=== PATIENT | male | born 1955 | race African-American/Black ===

== ENCOUNTER 2024-09-27 03:18 | Emergency (ER) | payer OTHER | END 2024-09-27 04:40 | LOC: BURERS 03:18 | DX: S60.212A Contusion of left wrist, initial encounter (principal); S60.211A Contusion of right wrist, initial encounter; S60.00XA Contusion of unspecified finger without damage to nail, initial encounter; F17.210 Nicotine dependence, cigarettes, uncomplicated; X58.XXXA Exposure to other specified factors, initial encounter | CPT/HCPCS: 99283 ==